=== PATIENT | female | born 1990 | race African-American/Black ===

== ENCOUNTER 2018-07-05 11:45 | Observation (INO) | payer OTHER ==
[~2018-07-05] VITALS: Ht 165.1 cm; Wt 90.3 kg
[2018-07-05 12:49] LABS: Urine Pregnacy Test Negative (Negative)
[2018-07-05 12:51] LABS: Urine Bacteria NONE SEEN /hpf (None Seen); Urine Blood 1+ /uL (Negative); Urine Mucus FEW (None Seen); Urine Specific Gravity 1.028 (1.001-1.035); Urine WBC 2 /hpf (0 - 5)
[2018-07-05 13:11] LABS: Amphetamine Screen, Urine NEGATIVE (NEGATIVE); Barbiturate Scree,Urine NEGATIVE (NEGATIVE); Benzodiazephine Screen, Urine NEGATIVE (NEGATIVE); Cannabinoid Screen, Urine POSITIVE (NEGATIVE); Cocaine Screen, Urine NEGATIVE (NEGATIVE); Opiate Scree,Urine NEGATIVE (NEGATIVE); Phencyclidine Screen, Urine NEGATIVE (NEGATIVE)
[2018-07-05 13:47] LABS: Salicylate < 1.7 mg/dL (2.8-20.0)
[2018-07-05 13:48] LABS: Acetaminophen < 2.0 ug/mL (10-30)
[2018-07-05 14:21] VITALS: BP 137/109
[2018-07-05] MEDS ORDERED: ALPRAZolam 0.5 MG TAB ONE (14:28)
[2018-07-05] MEDS ORDERED: ALPRAZolam 0.5 MG TAB PO ONE (14:30)
== END 2018-07-05 15:39 | disposition left against medical advice (07) | DRG 754 ==
LOC: ER 11:45 → OVERFLOW 11:46 → ER 15:39
PROVIDERS: ADMIT Family Medicine; ATTEND Family Medicine
DX: F32.9 Major depressive disorder, single episode, unspecified (principal); R45.851 Suicidal ideations; F41.9 Anxiety disorder, unspecified
CPT/HCPCS: 36415; 70450; 80307; 80320; 80329; 81001; 81025; 99285; G0378

== ENCOUNTER 2018-07-09 00:34 | Emergency (ER) | payer OTHER ==
[~2018-07-09] VITALS: Ht 165.1 cm; Wt 87.5 kg
[2018-07-09 00:58] VITALS: BP 145/84
== END 2018-07-09 01:30 | disposition left against medical advice (07) ==
LOC: ER 00:37
DX: R53.1 Weakness (principal); R05 Cough; Z53.21 Procedure and treatment not carried out due to patient leaving prior to being seen by health care provider

== ENCOUNTER 2021-05-23 15:55 | Emergency (ER) | payer OTHER ==
[~2021-05-23] VITALS: Ht 167.6 cm; Wt 79.4 kg
[2021-05-23 16:10] VITALS: BP 120/79
== END 2021-05-23 16:29 | disposition home or self-care (01) ==
LOC: ER 15:55
DX: Z00.00 Encounter for general adult medical examination without abnormal findings (principal); M79.10 Myalgia, unspecified site

== ENCOUNTER 2024-09-14 11:50 | Emergency (ER) | payer MEDICAID, OTHER ==
[~2024-09-14] VITALS: Ht 165.1 cm; Wt 95.0 kg
[2024-09-14 13:08] VITALS: BP 140/68; PULSE 70; RESP 18; TEMP 98.4; O2SAT 100
[2024-09-14] MEDS ORDERED: MUPI2CRE17 EX (13:52)
[2024-09-14] MEDS ORDERED: IBUP-1454 PO (13:53)
--- NOTE | 2024-09-14 13:53 | ED.PDOC ---
Burn HPI HPI Comments This is a pleasant 34-year-old female that presents for pain to the dorsal aspect of the right hand after a skin burn. Pain is located to the distal 2nd, 3rd, 4th distal phalanx Mechanism of injury: Spilled hot water while making a cup of soup Complains of [id number] pain. Denies restrictions in her range of motion Denies numbness tingling to the affected extremity Chief Complaint: Ardon Time Seen by MD: 12:51 Primary Care Provider: poncho May notes: Nurses Notes, Medications, Allergies Allergies: Coded Allergies: NO KNOWN ALLERGIES (Unverified , 07/05/18) Home Meds Active Scripts Ibuprofen (Ibuprofen) 600 Mg Tab, 1 TAB PO TID for 10 Days, #30 TAB 0 Refills Prov:SUSAN HARRISON NP 09/14/24 Mupirocin Calcium (Topical) (MUPIROCIN) 2 % Cre, 1 APPLIC EX TID for 7 Days, #5 GRAMS 0 Refills Prov:SUSAN HARRISON NP 09/14/24 Information Source: Patient Mode of Arrival: Ambulatory Past Medical History PAST MEDICAL HISTORY: Anxiety, Depression Surgical History: Denies all surgeries [employer] History: No Pertinent [employer]ER History Social History Smoker: Non-Smoker Alcohol: Denies ETOH Use Drugs: Denies Drug Use All Other Systems: Reviewed and Negative (Per HPI) Physical Exam General Appearance: No Apparent Distress, Normal HEENT: Normal ENT Inspection, Pharynx Normal, TMs Normal Neck: Full Range of Motion, Non-Tender, Normal, Normal Inspection Respiratory: Chest Non-Tender, Lungs Clear, No Accessory Muscle Use, No Respiratory Distress, Normal Breath Sounds Cardiovascular: No Edema, No JVD, No Murmur, No Gallop, Normal Peripheral Pulses, Regular Rate/Rhythm Breast Exam: Deferred Gastrointestinal: No Organomegaly, Non Tender, No Pulsatile Mass, Normal Bowel Sounds, Soft Genitalia: Deferred Pelvic: Deferred Rectal: Deferred Extremities: No calf tenderness, Normal capillary refill, Normal inspection, Normal range of motion, Non-tender, No pedal edema Musculoskeletal : Apperance: Normal Neurologic: Alert, scientific database curator II-XII nml as Tested, No Motor Deficits, Normal Affect, Normal Mood, No Sensory Deficits Cerebellar Function: Normal Reflexes: Normal Skin: Dry, Normal Color, Warm Lymphatic: No Adenopathy Was a procedure done? Was a procedure done?: No Images 1 - No gross abnormality on inspection. No ecchymosis, no erythema, no open wounds. Full passive and active range of motion of the hand. Distal neuro sensation intact. Radial pulses 2+ Differentail Diagnosis (BRN) Differential Diagnosis: Other X-Ray, Labs, Meds, VS Vital Signs Date Time Temp Pulse Resp B/P (MAP) Pulse Ox O2 Delivery O2 Flow Rate FiO2 09/14/24 13:08 98.4 70 18 140/68 (92) 100 98.4 09/14/24 13:08 70 18 100 Room Air 09/14/24 12:06 98.4 70 18 140/68 (92) 100 X-Ray, Labs, Meds, VS Comment After ROS and physical exam examination there were no red flags. Empiric treatment initiated and patient advised to keep the area clean dry. Recommended ice packs as needed for pain and swelling. [id number] ibuprofen as needed Patient is stable for discharge at this time. External notes reviewed. Test results and diagnostic imaging interpreted. All diagnostic findings, discharge care, education and instructions provided Follow-up with PCP in 2 to 3 days Patient verbalized understanding and agreed to treatment plan Vital signs stable, afebrile, no acute distress noted Patient ambulatory with strong steady gait Advised to return precautions for any new or worsening symptoms, return to ER immediately for re-evaluation Patient is aware that the purpose of this visit was for an acute medical emergency requiring emergent stabilization. Chronic conditions, including malignancies have not been ruled out. Patient is instructed to follow up with PCP as directed and discharge instructions for continued care and workup. If unable to arrange follow-up, patient is to return to the emergency department for reassessment. Patient (parent or legal guardian if applicable) was given verbal and written discharge instructions and acknowledges understanding. Time of 1ST Reevaluation: 13:45 Reevaluation 1ST: Improved Patient Education/Counseling: Diagnosis, Treatment Family Education/Counseling: Diagnosis, Treatment Departure 1 Departure Time of Disposition: 13:52 Impression: Primary Impression: Skin burn Disposition: HOME / SELF CARE / HOMELESS Condition: Stable e-Prescriptions Ibuprofen (Ibuprofen) 600 Mg Tab 1 TAB PO TID for 10 Days, #30 TAB 0 Refills Prov: SUSAN HARRISON NP 09/14/24 Mupirocin Calcium (Topical) (MUPIROCIN) 2 % Cre 1 APPLIC EX TID for 7 Days, #5 GRAMS 0 Refills Prov: SUSAN HARRISON NP 09/14/24 Discharged With: Self Critical Care Note Critical Care Time?: No Stability Stability form required: No Heart Score Heart Score: Heart Score Response (Comments) Value History N/A 0 EKG N/A 0 Age N/A 0 Risk Factors N/A 0 Troponin N/A 0 Total 0 SUSAN HARRISON NP Sep 14, 2024 13:53
== END 2024-09-14 14:15 | disposition home or self-care (01) ==
LOC: ER 11:50
DX: T23.101A Burn of first degree of right hand, unspecified site, initial encounter (principal); M79.641 Pain in right hand; Z79.1 Long term (current) use of non-steroidal anti-inflammatories (NSAID); X11.8XXA Contact with other hot tap-water, initial encounter; Y93.89 Activity, other specified; Y92.89 Other specified places as the place of occurrence of the external cause; Y99.8 Other external cause status